=== PATIENT | male | born 1970 | race Caucasian/White ===

== ENCOUNTER 2016-08-22 02:22 | Inpatient (IN) | payer BC, OTHER ==
[~2016-08-22] VITALS: Ht 182.9 cm; Wt 136.5 kg
[2016-08-22 02:33] VITALS: Ht 182.9 cm; Wt 136.5 kg
[2016-08-22] MEDS ORDERED: BELLADONNA/PHENOBARBITAL TAB PO STA (06:21)
[2016-08-22] MEDS ORDERED: LIDOCAINE/MYLANTA 40 ML BTL PO STA (06:21)
[2016-08-22] MEDS ORDERED: KETOROLAC 15 MG INJ IV STA (06:21)
[2016-08-22] MEDS ORDERED: ENALAPRILAT 1.25 MG INJ IV ONE (06:30)
[2016-08-22] MEDS ORDERED: ASPIRIN 325 MG TAB PO ONE (06:30)
--- NOTE | 2016-08-22 06:43 | RADRPT ---
PROCEDURE: Chest. CLINICAL INDICATION: Chest pain. TECHNIQUE: Single frontal view of the chest was obtained. COMPARISON: None. FINDINGS: The cardiac silhouette is within normal limits. The aortic arch is unremarkable. There is no focal consolidation, vascular congestion or pleural effusion. There is no pneumothorax. IMPRESSION: No evidence for active cardiopulmonary disease. .Ken Denis MD, MD Date Time Electronically viewed and signed by .Ken Denis MD, on 08/22/2016 06:42 .T/
[2016-08-22 07:08] LABS: ADD SCAN DIFF NO
[2016-08-22 07:14] LABS: BASOPHIL # 0.1 10^3/ul (0.0-0.1); BASOPHILS % 0.5 % (0.0-2.0); EOSINOPHILS % 0.1 % (0.0-7.0); HEMATOCRIT 45.3 % (42.0-52.0); HEMOGLOBIN 14.8 g/dl (14.0-18.0); LYMPHOCYTES # 1.1 10^3/ul (0.8-2.9); LYMPHOCYTES % 7.8 % (15.0-51.0); MEAN CORPUSCULAR HEMOGLOBIN 29.2 pg (29.0-33.0); MEAN CORPUSCULAR HGB CONC 32.7 g/dl (32.0-37.0); MEAN CORPUSCULAR VOLUME 89.3 fl (82.0-101.0); MEAN PLATELET VOLUME 12.5 fl (7.4-10.4); MONOCYTE # 0.8 10^3/ul (0.3-0.9); MONOCYTES % 5.6 % (0.0-11.0); NEUTROPHIL # 11.7 10^3/ul (1.6-7.5); NEUTROPHILS % 85.6 % (39.0-77.0); PLATELET COUNT 250 10^3/UL (140-415); RED BLOOD COUNT 5.07 10^6/ul (4.70-6.10); RED CELL DISTRIBUTION WIDTH 12.6 % (11.5-14.5); WHITE BLOOD COUNT 13.6 10^3/ul (4.8-10.8)
[2016-08-22 07:20] LABS: ALBUMIN 4.3 g/dl (3.3-4.9); CHLORIDE 103 mmol/L (97-110); SODIUM 145 mmol/L (135-144)
[2016-08-22 07:22] LABS: CREATININE 1.16 mg/dl (0.61-1.24)
[2016-08-22 07:23] LABS: ALANINE AMINOTRANSFERASE 142 IU/L (13-69); ALBUMIN/GLOBULIN RATIO 1.43; ALKALINE PHOSPHATASE 115 IU/L (42-121); ANION GAP 20 (8-16); ASPARTATE AMINO TRANSFERASE 202 IU/L (15-46); BILIRUBIN,INDIRECT 0.4 mg/dl (0-1.1); BILIRUBIN,TOTAL 0.4 mg/dl (0.2-1.3); BLOOD UREA NITROGEN 17 mg/dl (7-20); CALCIUM 9.8 mg/dl (8.4-10.2); CARBON DIOXIDE 26 mmol/L (21-31); GLUCOSE 127 mg/dl (70-220); TOTAL PROTEIN 7.3 g/dl (6.1-8.1)
[2016-08-22 07:45] LABS: TROPONIN-I < 0.012 ng/ml (0.00-0.12)
--- NOTE | 2016-08-22 08:02 | ERA ---
ER Documentation Chief Complaint Date/Time DATE: 08/22/16 TIME: 08:00 Chief Complaint chest pain since 1 hour ago HPI 46-year-old man presents with 1 hour of pressure-like chest pain dizziness, nausea beginning at rest. He denies previous episodes he also had mild shortness of breath. He denies cough, no calf or leg swelling, no recent fevers or chills, no vomiting or diarrhea. Patient smokes cigarettes and has a history of hypertension ROS All systems reviewed and are negative except as per history of present illness. Medications Home Meds Active Scripts Ciprofloxacin Hcl* (Ciprofloxacin Hcl*) 500 Mg Tablet, 500 MG PO BID, #10 TAB Prov:UBALDO SIMS MD 08/22/16 Magaldrate/Simethicone* (Mag-Al Plus Suspension*) 30 Ml Oral.susp, 15 ML PO Q6H Y for GASTROINTESTINAL UPSET, #120 ML Prov:UBALDO SIMS MD 08/22/16 Pantoprazole* (Pantoprazole*) 40 Mg Tablet.dr, 40 MG PO BID, #45 Prov:UBALDO SIMS MD 08/22/16 Metoprolol Tartrate* (Lopressor*) 25 Mg Tab, 25 MG PO BID, #60 TAB Prov:UBALDO SIMS MD 08/22/16 Allergies Allergies: Coded Allergies: No Known Allergy (Unverified , 08/22/16) PMhx/Soc Medical and Surgical Hx: pt denies Medical Hx, pt denies Surgical Hx History of Surgery: No Anesthesia Reaction: No Hx Neurological Disorder: No Hx Respiratory Disorders: No Hx Cardiac Disorders: No Hx Psychiatric Problems: No Hx Miscellaneous Medical Probl: No Hx Alcohol Use: Yes (occasional) Hx Substance Use: No Hx Tobacco Use: Yes Smoking Status: Never smoker FmHx His father has had multiple MIs first one at age 36 Family History: No diabetes Physical Exam Vitals Vital Signs Date Time Temp Pulse Resp B/P Pulse Ox O2 Delivery O2 Flow Rate FiO2 08/22/16 08:23 97.5 70 18 140/93 99 Room Air 08/22/16 06:25 75 18 151/101 99 Room Air 08/22/16 02:33 97.8 77 20 143/79 100 Physical Exam GENERAL: Well-developed, well-nourished, well-hydrated, in no apparent distress , looks nontoxic in appearance HEENT: Moist mucous membranes, pink conjunctiva, no cervical spine tenderness or step-off deformities, no goiter, no jaundice or icterus, extraocular movements intact without pain. No submandibular induration, and no pharyngeal erythema NEURO: Alert and oriented 3, cranial nerves II through XII intact bilaterally, pupils equal round reactive to light, no focal deficits or facial asymmetry, sensation intact distally Strength 5/5 in upper and lower extremities bilaterally CARDIAC: Regular rate and rhythm, no murmurs rubs or gallops LUNGS: Clear bilaterally no wheezing crackles or stridor ABDOMEN: Soft nontender, no guarding, no rigidity, no rebound, no psoas sign no obturator sign. Normoactive bowel sounds SKIN: Warm and dry to touch, no abrasions, contusions, or hematomas, no lacerations, no ecchymosis, no target lesions, and without ulcers EXTREMITIES: No clubbing cyanosis or edema, calves are bilaterally symmetrical, no Homans sign, no popliteal cord sign. Distal pulses equal and bilateral PSYCH: Normal affect without agitation or irritability Result Diagram: 08/22/1664608/22/1647 Results 24 hrs Laboratory Tests Test 08/22/16 06:47 Alanine Aminotransferase (ALT/SGPT) 142IU/L Albumin 4.3g/dl Albumin/Globulin Ratio 1.43 Alkaline Phosphatase 115IU/L Anion Gap 20 Aspartate Amino Transf (AST/SGOT) 202IU/L Basophils # 0.110^3/ul Basophils % 0.5% Blood Urea Nitrogen 17mg/dl Calcium Level 9.8mg/dl Carbon Dioxide Level 26mmol/L Chloride Level 103mmol/L Creatine Kinase 168IU/L Creatine Kinase Index 0.6 Creatinine 1.16mg/dl Creatinine Kinase MB (Mass) 1.09ng/ml Direct Bilirubin 0.00mg/dl Eosinophils # 0.010^3/ul Eosinophils % 0.1% Globulin 3.00g/dl Glucose Level 127mg/dl Hematocrit 45.3% Hemoglobin 14.8g/dl Indirect Bilirubin 0.4mg/dl Lipase 40U/L Lymphocytes # 1.110^3/ul Lymphocytes % 7.8% Mean Corpuscular Hemoglobin 29.2pg Mean Corpuscular Hemoglobin Concent 32.7g/dl Mean Corpuscular Volume 89.3fl Mean Platelet Volume 12.5fl Monocytes # 0.810^3/ul Monocytes % 5.6% Neutrophils # 11.710^3/ul Neutrophils % 85.6% Nucleated Red Blood Cells # 0.010^3/ul Nucleated Red Blood Cells % 0.0/100WBC Platelet Count 53875^3/UL Potassium Level 4.0mmol/L Red Blood Count 5.0710^6/ul Red Cell Distribution Width 12.6% Sodium Level 145mmol/L Total Bilirubin 0.4mg/dl Total Protein 7.3g/dl Troponin I < 0.012ng/ml White Blood Count 13.610^3/ul Current Medications Medications (Trade) Dose Ordered Sig/Ana Route PRN Reason Start Time Stop Time Status Last Admin Dose Admin Aspirin (Aspirin) 325 mg ONCE ONCE PO 08/22/16 06:30 08/22/16 06:31 DC 08/22/16 06:30 Miscellaneous Medication (Gi Cocktail (2)) 40 ml ONCE STAT PO 08/22/16 06:21 08/22/16 06:23 DC 08/22/16 06:30 Belladonna/ Phenobarbital () 2 tab ONCE STAT PO 08/22/16 06:21 08/22/16 06:23 DC 08/22/16 06:30 Ketorolac Tromethamine (Toradol) 15 mg ONCE STAT IV 08/22/16 06:21 08/22/16 06:23 DC 08/22/16 06:29 Enalaprilat (Vasotec Iv) 1.25 mg ONCE ONCE IV 08/22/16 06:30 08/22/16 06:31 DC 08/22/16 06:30 Procedures/[facility] IV line was established patient was placed on monitoring analyst rhythm strip revealed a sinus rhythm at about 70 bpm with upright P and T waves. One AP view of the chest performed, read by me reveals no acute infiltrates, normal mediastinum, sharp costophrenic and cardiac borders, no air under the diaphragm. Otherwise unremarkable chest x-ray. EKG was performed, read by me revealed a normal sinus rhythm at 71 bpm, normal axis, right ventricular conduction delay with a QRS duration of 100 ms, no concerning ST elevations or depressions noted. I administered 1 L normal saline intravenously, aspirin 325 mg p.o. for cardioprotective measures, Toradol 15 mg IV for pain, and enalapril 1.25 mg IV for hypertension. Patient also received a GI cocktail 50 cc p.o. for abdominal cramping. CBC was unremarkable, electrolytes unremarkable, liver function tests were normal, troponin was negative. Patient will be admitted to telemetry setting for continued medical management and cardiology consultation. Departure Diagnosis: Primary Impression: Chest pain Qualified Code: R07.9 - Chest pain, unspecified type Additional Impression: Hypertension Qualified Code: I10 - Essential hypertension Condition: YESSENIA Stone MD Aug 22, 2016 08:02
[2016-08-22 08:23] VITALS: TEMP 97.5
[2016-08-22 08:59] VITALS: BP 157/100; PULSE 76; RESP 20
[2016-08-22 09:10] VITALS: PULSE 73
[2016-08-22] MEDS ORDERED: ACETAMINOPHEN 325 MG TAB PO PRN (09:30)
[2016-08-22] MEDS ORDERED: NITROGLYCERIN (SL) 0.4 MG TAB SL PRN (09:30)
[2016-08-22] MEDS ORDERED: morphine 2 MG INJ IV PRN (09:30)
[2016-08-22] MEDS ORDERED: DOCUSATE SODIUM 100 MG CAP PO PRN (09:30)
[2016-08-22] MEDS ORDERED: NACL 0.9% 3 ML SYG IV SCH (09:30)
[2016-08-22] MEDS ORDERED: ONDANSETRON 4 MG TAB PO PRN (09:30)
[2016-08-22] MEDS ORDERED: LORAZEPAM 0.5 MG TAB PO PRN (09:30)
[2016-08-22] MEDS ORDERED: ENOXAPARIN 40 MG/0.4 ML SYG SC SCH (11:00)
[2016-08-22] MEDS ORDERED: METOPROLOL 25 MG TAB PO SCH (11:00)
[2016-08-22] MEDS ORDERED: PANTOPRAZOLE (EC) 40 MG TAB PO SCH (11:00)
[2016-08-22] MEDS ORDERED: ASPIRIN 81 MG TAB PO SCH (11:00)
[2016-08-22] MEDS ORDERED: AL HYDROX/MG HYDROX/SIMETH 30 ML CUP PO ONE (11:00)
--- NOTE | 2016-08-22 11:02 | CONS ---
Date/Time of Note Date/Time of Note DATE: 08/22/16 TIME: 10:55 Assessment/Plan Assessment/Plan Chief Complaint/Hosp Course Epigastric pain/lower chest pain: Unusual location and may just be GI in origin as resolved with GI cocktail but with very significant family history and tobacco use, he should have a more complete workup. Initial trop and EKG are normal. If his second trop is negative, will plan for MPI this afternoon. If second trop is positive, will proceed with cardiac cath. Tobacco use: discussed cessation HTN: does not carry a diagnosis -stat trop now -MPI if trop negative -if MPI or trop abnormal, likely cath. Otherwise can go home Problems: Consultation Date/Type/Reason Admit Date/Time Aug 22, 2016 at 08:46 Date of Consultation: Aug 22, 2016 Type of Consultation: Cardiology Reason for Consultation Chest/epigastric pain Referring Provider: UBALDO SIMS MD Hx of Present Illness 46 yo M with a h/o tobacco use (30+ pack years), who presented with epigastric pain. The pt notes that he has had epigastric/lower chest pain before which he has thought was heartburn but this time the pain was severe. He notes that the pain started last night and he vomited twice without worsening or relief of the pain. No substernal chest pain, arm or jaw pain. No SOB. He notes that his symptoms resolved after he got the GI cocktail in the ED but it has partially returned. He notes that his father had an AK in his 30s. per hPI Past Medical History tobacco use Social History Smoking Status: Never smoker Exam/Review of Systems Vital Signs Vitals Vital Signs Date Time Temp Pulse Resp B/P Pulse Ox O2 Delivery O2 Flow Rate FiO2 08/22/16 09:10 73 08/22/16 08:59 97.9 20 157/100 98 Room Air Exam Constitutional: alert, oriented Head: atraumatic, normocephalic Eyes: nl conjunctiva ENMT: nl external ears & nose Neck: supple, No jvd Respiratory: clear to auscultation, No crackles/rales Cardiovascular: regular rate and rhythm, No edema, No systolic murmur Gastrointestinal: non-tender, soft, No distended Extremities: normal pulses Neurological: nl mental status, nl speech Skin: No rash or lesions Results EKG: sinus, no ST changes Result Diagram: 08/22/16 0647 08/22/16 0647 Results 24 hrs Laboratory Tests Test 08/22/16 06:47 Alanine Aminotransferase (ALT/SGPT) 142 H Albumin 4.3 Albumin/Globulin Ratio 1.43 Alkaline Phosphatase 115 Anion Gap 20 H Aspartate Amino Transf (AST/SGOT) 202 H Basophils # 0.1 Basophils % 0.5 Blood Urea Nitrogen 17 Calcium Level 9.8 Carbon Dioxide Level 26 Chloride Level 103 Creatinine 1.16 Direct Bilirubin 0.00 Eosinophils # 0.0 Eosinophils % 0.1 Globulin 3.00 Glucose Level 127 Hematocrit 45.3 Hemoglobin 14.8 Indirect Bilirubin 0.4 Lipase 40 Lymphocytes # 1.1 Lymphocytes % 7.8 L Mean Corpuscular Hemoglobin 29.2 Mean Corpuscular Hemoglobin Concent 32.7 Mean Corpuscular Volume 89.3 Mean Platelet Volume 12.5 H Monocytes # 0.8 Monocytes % 5.6 Neutrophils # 11.7 H Neutrophils % 85.6 H Nucleated Red Blood Cells # 0.0 Nucleated Red Blood Cells % 0.0 Platelet Count 250 Potassium Level 4.0 Red Blood Count 5.07 Red Cell Distribution Width 12.6 Sodium Level 145 H Total Bilirubin 0.4 Total Protein 7.3 Troponin I < 0.012 White Blood Count 13.6 H Medications Medications Current Medications Metoprolol Tartrate (Lopressor) 12.5 mg BID PO ; Start 08/22/16 at 11:00 Lorazepam (Ativan) 0.5 mg Q8H PRN PO ANXIETY; Start 08/22/16 at 09:30 Ondansetron HCl (Zofran Tab) 4 mg Q6H PRN PO NAUSEA AND/OR VOMITING; Start 03/31 at 09:30 Aspirin (Aspirin) 81 mg DAILY PO ; Start 08/22/16 at 11:00 Nitroglycerin (Nitroglycerin (Sl Tab) 0.4 Mg) 1 tab Q5M PRN SL CHEST PAIN; Start 08/22/16 at 09:30 Acetaminophen (Tylenol Tab) 650 mg Q6H PRN PO PAIN LEVEL 1-3 OR FEVER; Start at 09:30 Morphine Sulfate (morphine) 1 mg Q4H PRN IV PAIN LEVEL 7-10; Start 08/22/16 at 09:30 Docusate Sodium (Colace) 100 mg Q12H PRN PO CONSTIPATION; Start 08/22/16 at 09: 30 Pantoprazole (Protonix Tab) 40 mg DAILY@06 PO ; Start 08/22/16 at 11:00 Enoxaparin Sodium (Lovenox) 40 mg DAILY SC ; Start 08/22/16 at 11:00 MARIANNE PAGE Aug 22, 2016 11:02
[2016-08-22 11:19] LABS: CREATINE KINASE 168 IU/L (23-200)
[2016-08-22 11:30] LABS: CK-MB 1.09 ng/ml (0.0-2.4)
[2016-08-22 11:39] LABS: TROPONIN-I < 0.012 ng/ml (0.00-0.12)
[2016-08-22 12:20] VITALS: PULSE 76
[2016-08-22] MEDS ORDERED: REGADENOSON 0.4 MG/5 ML SYG ONE (13:25)
--- NOTE | 2016-08-22 13:49 | RADRPT ---
Echocardiogram Report Patient Name: SAADIA BROWN Gender: Male Date: 1970 Study Date: 22-Aug-2016 Automatic Gl[employer] Turner And Former: [facility] Location: 5552 Ref. Physician: UBADLO SIMS Quality: Good Procedures: Transthoracic echocardiogram with complete 2D, M-Mode, and doppler examination. Indications: Chest Pain. 2D/M Mode Doppler Measurement Value Normal Ranges Measurement Value Normal Ranges LVIDd 2D 4.8 3.5 - 5.6 cm AV Peak Ethan 1.4 m/sec LVIDs 2D 2.7 2.1 - 4.1 cm AV Peak PG 8.0 mmHg FS 2D 43.4 % LVOT Peak Ethan 1.3 m/sec LVPWd 2D 1.1 0.6 - 1.1 cm LVOT Peak PG 6.0 mmHg IVSd 2D 1.2 0.6 - 1.1 cm MV E Peak Ethan 0.7 m/sec IVS/LVPW 2D 1.0 MV A Peak Ethan 0.8 m/sec AoR Diam 2D 2.9 2.0 - 3.7 cm MV E/A 0.8 LA/Ao 2D 1 0 - 1 MV Decel Time 148 msec EDV 2D 107.0 cm3 MV E/A 0.8 ESV 2D 19.5 cm3 LA Dimen 2D 3.6 2.3 - 4.0 cm Findings Left Ventricle: Normal left ventricular systolic function. Normal left ventricular cavity size. Ejection fraction is visually estimated at 65 %. Tissue Doppler/Mitral Doppler indices are within normal limits. Right Ventricle: Normal right ventricular size. Normal right ventricular systolic function. Left Atrium: The left atrium is normal in size. Right Atrium: The right atrium is normal in size. Mitral Valve: Normal appearance and function of the mitral valve with trace physiologic regurgitation. Aortic Valve: No significant aortic stenosis or insufficiency. Aortic cusps appear mildly calcified. Tricuspid Valve: Unable to obtain RVSP due to minimal presence of tricuspid regurgitation. Pulmonic Valve: Normal pulmonic valve appearance. Pericardium: Normal pericardium with no significant pericardial effusion. Aorta: Normal aortic root. IVC: Normal size and normal respiratory collapse consistent with normal right atrial pressure. Conclusions 1.Normal left ventricular systolic function. Normal left ventricular cavity size. Ejection fraction is visually estimated at 65 %. Tissue Doppler/Mitral Doppler indices are within normal limits. 2.No significant valvular stenosis or regurgitation seen. 3.Unable to assess RVSP. RA pressure is 3 mmHg. Electronically Signed By: Shade Granger 22-Aug-2016 13:47:55 -0800 Patient Name: SAADIA BROWN Study Date: 22-Aug-[id number]
--- NOTE | 2016-08-22 14:11 | OPR ---
Date/Time of Note Date/Time of Note DATE: 08/22/16 TIME: 14:10 Operative Report Free Text/Dictation Nuclear medicine myocardial perfusion imaging: Date: 08/22/2016 Indication: Epigastric/chest pain with CAD risk factors After informed consent, the patient was given IV Lexiscan. Pt was monitored for a total of 8 minutes post-infusion without any sings of arrhythmias. Patient had no chest pain or EKG changes. Please refer to separate note for imaging results. MARIANNE PAGE Aug 22, 2016 14:11
--- NOTE | 2016-08-22 15:54 | RADRPT ---
PROCEDURE: Nuclear medicine myocardial perfusion scan CLINICAL INDICATION: Chest pain TECHNIQUE: 44.3 mCi of technetium 99m Cardiolite was administered for the stress study. 15.6 mCi of technetium 99m Cardiolite was administered for the resting study. The patient was stressed with 0 .4 mg of Lexiscan. Images were reviewed in the short axis, vertical long axis, and horizontal long axis views. Wall motion was assessed and ejection fraction was calculated as well. Images were revi ewed on a high-resolution PACS workstation. COMPARISON: None available FINDINGS: Left ventricular size is within normal limits. There is moderate soft tissue and bowel attenuation artifact. The stress tomographic images demonstrate a normal pattern of perfusion. The resting joyce ographic images demonstrate a similar pattern. There is no evidence for reversible ischemia. Wall motion is normal. The ejection fraction is calculated at 57%. IMPRESSION: 1. Negative myocardial perfusion scan. 2. There is no evidence for reversible ischemia. 3. Normal wall motion with normal ejection fraction of 57%. RPTAT: HMJB .Kapil Woods MD, MD Date Time Electronically viewed and signed by .Kapil Woods MD, MD on 08/22/2016 15:54 .B/
--- NOTE | 2016-08-22 16:34 | PDOCDIS ---
Discharge Instructions CONDITION Patient Condition: Good HOME CARE INSTRUCTIONS: Diet Instructions: Low Fat /Cholesterol ACTIVITY: Activity Restrictions: No Restrictions FOLLOW UP/APPOINTMENTS Appointments FOllow up with PCP in one week UBALDO SIMS MD Aug 22, 2016 16:34
[2016-08-22] MEDS ORDERED: PANT40TA4 PO (16:36)
[2016-08-22] MEDS ORDERED: UDMYL PO (16:36)
[2016-08-22] MEDS ORDERED: METO-448 PO (16:36)
[2016-08-22] MEDS ORDERED: CIPR500T4 PO (16:52)
[2016-08-22 17:09] VITALS: PULSE 97
--- NOTE | 2016-08-22 17:16 | HP ---
DATE OF ADMISSION: 08/22/2016 TYPE OF REPORT: History and physical and discharge summary. 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 A 2D echocardiogram demonstrated normal left ventricle systolic function, normal left ventricle cavity size, ejection fraction estimated at 65%. Doppler indices are within n ormal limits. No significant valvular stenosis or regurgitation seen. CHIEF COMPLAINT: Epigastric pain. HISTORY OF PRESENT ILLNESS: This is a 46-year-old gentleman with past medical history of nicotine d ependency who presents to [facility] secondary to having mid epigastric and anteri or chest discomfort which has been going on for 2 days with exacerbation since last night. The breanna ent arrived to the emergency room of [facility] where he had an EKG which showed n ormal sinus rhythm, normal EKG, ventricular rate of 70. Troponin was found to be negative. Cardiol michela was consulted and patient obtained a 2D echocardiogram. The patient was then sent for a SPECT s tudy Cardiolite nuclear test which was negative for myocardial perfusion study. There is no evidenc e of reversible ischemia, normal wall motion with normal ejection fraction of 57%. At this time, fahad lee denies having any chest pain, shortness of breath, nausea, vomiting or diarrhea. No headache, dizziness, numbness, weakness. No change in visual acuity, diplopia, photophobia. No bone pain. Positive for abdominal pain. According to patient, this has been ongoing for the past several month s he has been without significant relief. PAST MEDICAL AND SURGICAL HISTORY: Nicotine dependency. MEDICATIONS: None. SOCIAL HISTORY: Positive for smoking a pack of cigarettes per day. Alcohol rarely. No illicit rell g use. He is with 2 kids. REVIEW OF SYSTEMS: As above per HPI, otherwise 12 review of systems has been found to be negative. PHYSICAL EXAMINATION: VITAL SIGNS: Temperature 97.9, pulse 76, respiration 20, blood pressure 140/93, 157/100, oxygen 98% in room air. GENERAL APPEARANCE: The patient is lying in bed comfortably without any distress. He is awake, panchito rt, oriented. He is able to answer my questions properly. Body habitus morbidly obese with BMI of 40.8. EYES AND ENT: Conjunctivae and lids are normal. Pupils are normal. Extraocular normal. Hearing g rossly normal. Lips are normal. Oral mucosa is moist. NECK: Supple. Trachea is midline. There is no lymphadenopathy. RESPIRATORY: Effort is normal. Clear to auscultation bilaterally. CARDIOVASCULAR: Normal S1, S2. Regular rhythm and rate. No murmur, no bruits, no edema. Peripher al pulses are palpable. Radial pulse palpable. Cap refill is normal. CHEST: Normal expansion of thorax during inspiration. GASTROINTESTINAL: Abdomen is soft, nontender, not distended. Bowel sounds present. No guarding, n o rebound. GENITOURINARY: Deferred. MUSCULOSKELETAL: Upper and lower extremities are within normal limits. Full range of motion, stren gth 5/5 in both upper and lower extremities. NEUROLOGIC: Cranial nerves II through XII are grossly intact. PSYCHIATRIC: Normal judgment and insight. Alert and oriented x3. Mood and affect is normal. LABORATORY WORK AND IMAGING: WBC 13.3, hemoglobin 14.8, hematocrit 45.3, platelets 250. Sodium 145 , potassium 4.0, chloride 103, bicarbonate 26, BUN 17, creatinine 1.16, glucose 127. Troponin negat mark x2. AST 203, ALT 142, alkaline phosphatase of 115. ASSESSMENT AND PLAN: 1. Atypical chest pain. 2. Gastritis. Patient has been admitted to telemetry floor. Cardiology has been consulted and cardiology optimiza tion showed normal ejection fraction. Cardiolite SPECT study was negative for ischemia. At this ti me, patient is medically stable to be discharged home with a close followup with the primary care ph ysician as outpatient. Dictated By: UBALDO SIMS MD PN/NTS Conf#: [id number] DID#: [id number]
--- NOTE | 2016-08-22 17:24 | DS ---
DATE OF ADMISSION: 08/22/2016 DATE OF DISCHARGE: 08/22/2016 REMELTER: Cardiology. PROCEDURE: 1. 2D echocardiogram, normal ejection fraction. 2. Cardiolite SPECT study with ejection fraction of 58% with no sign of ischemia. DISCHARGE DIAGNOSES: 1. Epigastric pain secondary to gastritis. 2. Hypernatremia. 3. Transaminitis, likely secondary to gastritis. 4. Leukocytosis, likely reactive. The patient was discharged on ciprofloxacin. 5. Essential hypertension. The patient has been started on metoprolol. HOSPITAL COURSE: This is a 46-year-old gentleman with past medical history of nicotine dependency a nd morbid obesity, who presents to [facility] secondary to having 2 to 3 months of abdominal discomfort in mid epigastric with worsening of his condition. The patient was admitted t [facility] complaining of having anterior chest wall pain. He was admitted, had a 2D echocardiogram and nuclear study stress test. The stress test was found to be negative. The 2D echocardiogram showed normal ejection fraction. The patient's serial troponins were negative. T he patient was found to have WBC of 13.6, which is reactive secondary to abdominal pain and gastriti s. The patient was discharged home on ciprofloxacin. Regarding his gastritis, I have instructed th e patient to follow with a log feeder as an outpatient. Also, patient was found to have mil d transaminitis, which I have ordered CMP and abdominal ultrasound limited to liver, pancreas and bi liary duct. The patient will follow up with his primary care physician for this imaging. At this t deshawn, the patient is medically stable to be discharged home. I have instructed him to quit smoking a nd I have written prescription for nicotine patch. Dictated By: UBALDO SIMS MD PN/NTS Conf#: [id number] DID#: [id number]
[2016-08-22 18:33] LABS: CREATINE KINASE 128 IU/L (23-200)
[2016-08-22 18:53] LABS: CK-MB 0.64 ng/ml (0.0-2.4); TROPONIN-I < 0.012 ng/ml (0.00-0.12)
[2016-08-25] MEDS ORDERED: INFLUENZA VIRUS VACCINE 0.5 ML SYG IM* ONE (09:00)
== END 2016-08-22 20:30 | disposition home or self-care (01) | DRG 392 ==
LOC: E/R 02:22 → MS4 08:46
PROVIDERS: ADMIT Family Medicine; ATTEND Family Medicine
DX: K29.70 Gastritis, unspecified, without bleeding (principal); E87.0 Hyperosmolality and hypernatremia; Z68.41 Body mass index [BMI] 40.0-44.9, adult; R10.13 Epigastric pain; F17.200 Nicotine dependence, unspecified, uncomplicated; R74.0 Nonspecific elevation of levels of transaminase and lactic acid dehydrogenase [LDH]; D72.829 Elevated white blood cell count, unspecified; I10 Essential (primary) hypertension; E66.01 Morbid (severe) obesity due to excess calories
CPT/HCPCS: 36415; 71010; 78452; 80053; 82550; 82553; 83690; 84484; 85025; 93005; 93017; 93306; 96374; 96375; A9500; A9505; J1885; J2785